=== PATIENT | female | born 1970 | race Asian ===

== ENCOUNTER 2017-01-03 09:00 | Emergency (ER) | payer OTHER ==
[2017-01-03 09:08] VITALS: BP 146/71; PULSE 67; TEMP 98; BMI 25.2
[2017-01-03] MEDS ORDERED: LORATADINE 10 MG TABLET PO ONE (09:47)
[2017-01-03] MEDS ORDERED: RANITIDINE HCL 150 MG TABLET (FP) PO ONE (09:50)
--- NOTE | 2017-01-03 09:57 | PDOC ---
History of Present Illness - General Chief Complaint: Itching Stated Complaint: ITCH Time Seen by Provider: 01/03/17 09:33 History Source: Patient Exam Limitations: No Limitations - History of Present Illness Initial Comments: 01/03/17 10:13 My chief complaint: Pruritic rash that comes and goes to different areas 3 weeks History of present illness: Patient is a 46-year-old female with no significant medical history here today complaining of a pruritic rash that started on her chest area that was covered with a shirt approximately 3 weeks ago that also had spread to her back and her abdomen and her thighs. Patient does not have any rash on her back presently or on her face or arms. Patient denies any difficulty breathing or swallowing. Patient denies any new foods, any new cosmetics such as soaps or lotions or laundry detergents or any new medications. Patient reports that she has been doing gardening however she has done this every year without any rash. Rash does not linear had has no vesicles. Rash comes and goes and is maculopapular slightly raised. 01/03/17 10:15 Timing/Duration: getting worse Severity: moderate Associated Symptoms: reports: rash (pruritic) Past History - Past Medical History Allergies/Adverse Reactions: Allergies Allergy/AdvReac Type Severity Reaction Status Date / Time No Known Allergies Allergy Verified 01/03/17 09:08 Home Medications: Ambulatory Orders Aspirin [ASA -] 325 mg PO ONCE 01/03/17 Diphenhydramine HCl [Benadryl -] 25 mg PO Q8H 01/03/17 Loratadine [Claritin -] 10 mg PO DAILY 01/03/17 Prednisone [Deltasone] 20 mg PO BID #8 tablet 01/03/17 Triamcinolone 0.5% Ointment [Aristocort 0.5% Ointment -] 1 applic TP BID #1 tube 01/03/17 Other medical history: NONE - Psycho/Social/Smoking Cessation Hx Anxiety: No Suicidal Ideation: No Smoking History: Never smoked Have you smoked in the past 12 months: No Hx Alcohol Use: No Drug/Substance Use Hx: No Substance Use Type: None Review of Systems - Review of Systems Able to Perform ROS?: Yes Constitutional: No: Symptoms Reported HEENTM: No: Symptoms Reported Respiratory: No: Symptoms reported Cardiac (ROS): No: Symptoms Reported ABD/GI: No: Symptoms Reported : No: Symptoms Reported Musculoskeletal: No: Symptoms Reported Integumentary: Yes: Pruritus, Rash (raised macule, papules, torso, legs) Neurological: No: Symptoms reported *Physical Exam - Vital Signs Last Vital Signs Temp Pulse Resp BP Pulse Ox 98.0 F 67 20 146/71 99 01/03/17 09:05 01/03/17 09:05 01/03/17 09:05 01/03/17 09:05 01/03/17 09:05 - Physical Exam General Appearance: Yes: Appropriately Dressed Respiratory/Chest: positive: Lungs Clear, Normal Breath Sounds. negative: Chest Tender, Respiratory Distress Cardiovascular: positive: Regular Rhythm, Regular Rate, S1, S2 Integumentary: positive: Rash (macule, papule rash under breast b/l , b/l thighs ) Neurologic: positive: Alert, Normal Response, Responsive Medical Decision Making - Medical Decision Making 01/03/17 10:16 Patient is a 46-year-old female with no significant medical history here today complaining of a pruritic rash that started on her chest area that was covered with a shirt approximately 3 weeks ago that also had spread to her back and her abdomen and her thighs. Patient does not have any rash on her back presently or on her face or arms. Patient denies any difficulty breathing or swallowing. Patient denies any new foods, any new cosmetics such as soaps or lotions or laundry detergents or any new medications. Patient reports that she has been doing gardening however she has done this every year without any rash. Rash does not linear had has no vesicles. Rash comes and goes and is maculopapular slightly raised. She has tried taking Benadryl for the itchiness once daily and has been taking Claritin daily and Zantac without relief of symptoms. Patient also has been using hydrocortisone cream without any relief of symptoms. macular papule rash trunk and legs allergic dermatitis PLAN: urine HCG negative 01/03/17 10:33 prednisone 40 mg po now than 20 mg bid for following 4 days trimamincolone 0.5% oint bid apply sparingly dermatology referral ENT for allergy testing *DC/Admit/Observation/Transfer Diagnosis at time of Disposition: Allergic dermatitis - Discharge Dispostion Disposition: HOME Condition at time of disposition: Stable - Prescriptions Prescriptions: Triamcinolone 0.5% Ointment [Aristocort 0.5% Ointment -] 1 applic TP BID #1 tube Prednisone [Deltasone] 20 mg PO BID #8 tablet - Referrals Referrals: Zachary Fajardo [Non Staff, Medical] - Michi Michael MD [Staff Physician] - - Patient Instructions Additional Instructions: Take Benadryl as needed as directed by manufacture for itchiness Continue to take Claritin daily as you have been and Zantac Return to emergency room if any difficulty breathing or swallowing or any new symptoms develop You must follow up with [facility] operator for further evaluation as soon as possible and ear nose and throat Dr. Michael's office for allergy testing Patient and her voiced understanding of discharge instructions and all questions were answered
[2017-01-03] MEDS ORDERED: predniSONE 20 MG TABLET (UD) PO ONE (10:31)
[2017-01-03] MEDS ORDERED: predniSONE 20 MG TABLET (UD) ONE (10:37)
== END 2017-01-03 10:52 | disposition home or self-care (01) ==
LOC: JERFT 09:00
DX: L23.9 Allergic contact dermatitis, unspecified cause (principal)
CPT/HCPCS: 84703; 99281-25